=== PATIENT | male | born 1980 | race Caucasian/White ===

== ENCOUNTER 2019-02-17 10:07 | Outpatient (CLI) | payer OTHER ==
[2019-02-17 10:34] LABS: A1C 4.9 % (<5.7)
[2019-02-17 11:26] LABS: HDL 40 mg/dL (>40); eGFR (Non-African) > 60
== END 2019-02-17 10:12 ==
LOC: LAB 10:07
PROVIDERS: ATTEND Nurse Practitioner Family
DX: Z00.00 Encounter for general adult medical examination without abnormal findings (principal); R73.9 Hyperglycemia, unspecified; E78.00 Pure hypercholesterolemia, unspecified; I10 Essential (primary) hypertension; E03.9 Hypothyroidism, unspecified
CPT/HCPCS: 36415; 80053; 80061; 83036; 84439; 84443; 84481